=== PATIENT | female | born 1960 | race Caucasian/White ===

== ENCOUNTER 2022-05-24 13:21 | Inpatient (IN) | payer MEDICARE ==
[2022-05-24] VITALS (174 sets, daily range): BP systolic 126–132; BP diastolic 71–80; PULSE 63–67; TEMP 100.1; O2SAT 92–99
[~2022-05-24] VITALS: Ht 165.1 cm; Wt 64.8 kg
[2022-05-24 15:38] LABS: BASO # 0.1 K/mm3 (0.0-0.2); BASO % 0.7 % (0.0-2.0); EOS # 0.2 K/mm3 (0.0-0.7); EOS % 2.6 % (0.0-4.0); GRAN # 4.8 K/mm3 (1.4-6.5); GRAN % 54.2 % (42.2-75.2); HEMATOCRIT 41.1 % (37.0-47.0); LYMPH # 2.9 K/mm3 (1.2-3.4); LYMPH % 33.1 % (20.0-51.0); MEAN CELL VOLUME 97 fl (80.0-100.0); MEAN CORPUSCULAR HEMOGLOBIN 33 pg (27-31); MEAN CORPUSCULAR HGB CONC 34 g/dl (33.0-37.0); MEAN PLATELET VOLUME 8.7 fl (7.4-10.4); MONO # 0.8 K/mm3 (0.1-0.6); MONO % 9.1 % (1.7-9.3); PLATELET COUNT 311 K/mm3 (130-400); RED BLOOD COUNT 4.26 M/mm3 (4.10-5.30); REDCELL DISTRIBUTION WIDTH-CV 12.4 % (11.5-14.5)
[2022-05-24 15:57] LABS: ALANINE AMINOTRANSFERASE 11 U/L (0-55); ALBUMIN 3.8 gm/dL (3.4-4.8); ALKALINE PHOSPHATASE 70 U/L (40-150); ANION GAP 17 mmol/L (7-16); AST,SGOT 19 U/L (5-34); BILIRUBIN,TOTAL 0.7 mg/dL (0.2-1.2); BLOOD UREA NITROGEN 27 mg/dL (10-20); CALCIUM 9.7 mg/dL (8.4-10.2); CARBON DIOXIDE 15 mmol/L (23-31); CHLORIDE 108 mmol/L (98-107); CREATININE, serum 0.78 mg/dL (0.57-1.11); GLUCOSE 61 mg/dL (70-99); POTASSIUM 3.8 mmol/L (3.5-4.5); SODIUM 140 mmol/L (136-145); TOTAL PROTEIN 6.8 gm/dL (6.2-8.1)
[2022-05-24 16:04] LABS: ALCOHOL(ethanol),MEDICAL < 10 mg/dL (0-10); TROPONIN-I < 0.010 ng/mL (0.00-0.033)
[2022-05-24 16:07] LABS: ACETAMINOPHEN < 1.0 ug/mL (10-30); SALICYLATE < 5.0 mg/dL (15.0-30.0)
[2022-05-24 16:11] LABS: COLLECTION METHOD CLEAN CATCH
[2022-05-24 16:18] LABS: URINE APPEARANCE Clear (CLEAR/HAZY); URINE COLOR Yellow (YELLOW)
[2022-05-24 16:19] LABS: PH 5.5 (5.0-8.5); URINE BLOOD Negative (NEGATIVE); URINE GLUCOSE Negative (NEGATIVE); URINE KETONE 4+ (NEGATIVE); URINE NITRATE Negative (NEGATIVE); URINE PROTEIN(semi-quant) Negative (NEGATIVE); URINE UROBILINOGEN 0.2 E.U/dL (0.2-1.0)
[2022-05-24 16:25] LABS: MUCOUS Present (NOT PRESENT); SQUAMOUS EPITHELIAL 0-2 /hpf (0-10); URINE BACTERIA Rare /hpf (NONE SEEN); URINE RBC 0-2 /hpf (0-2)
[2022-05-24 17:28] LABS: TRICYCLIC ANTIDEPRESS URINE NEGATIVE
--- NOTE | 2022-05-24 20:31 | NUR ---
Received report from ED nurse, Ana María.
--- NOTE | 2022-05-24 20:43 | NUR ---
Patient arrives to ICU room 4 via ED stretcher. Patient is alert and speaking, but does not really open eyes or make eye contact with staff. She is not oriented. Speech is somewhat mumbled but confused. She does not follow verbal commands. Initial vitals within normal limits. LR infusing to a peripheral 18G in the LAC. Patient noted to continuously pull at IV tubing and monitoring equipment. Mitts put in place for line protection. Lydia aware of patient's arrival.
--- NOTE | 2022-05-24 20:43 | NUR ---
Unable to safely assess pupils or pupillary response. When attempting to assess, patient clenches her eyes tightly closed. She does not open them when asked by staff. When staff attempts to gently open eyelids, patient swings her arms at nurse aggressively. Mitts already in place for protection of lines and monitoring equipment. When left alone, patient lies in bed quietly the majority of the time. She intermittently sits up in bed or begins crying for brief periods before laying back down. At this time, she has not actively attempted to get out of bed; she is not acting in an aggressive manner towards staff. She is rather compliant with cares and assessment except when attempting to assess pupils.
--- NOTE | 2022-05-24 21:30 | NUR ---
Patient alert but is not oriented, not even to self. Refuses to follow commands or answer staff questions. Attempted to contact Waleska EDOUARD, as listed on admission paperwork, no answer. A message was left with request to call back. Unable to complete vaccination history, suicide risk assessment, or medication reconciliation.
--- NOTE | 2022-05-24 22:09 | NUR ---
Received call back from patient's daughter Waleska. Per Waleska, she has not been in much contact with patient since October of this year. She states Shania called her about a week ago, stating she felt very depressed. Waleska was unaware of patient's recent stay at [facility] or what lead to her admission there. Waleska states she does not know what medications Shania takes nor does she know who her primary doctor is. Waleska reports the patient has a significant history of bipolar disorder, with extremely low lows, and very manic highs. She states patient is known to get combative at times. Waleska reports Shania's baseline as, "slow, but lucid." Waleska states patient also has a son she will be attempting to contact in case he has further information.
[2022-05-25] VITALS (333 sets, daily range): BP systolic 99–140; BP diastolic 72–105; PULSE 56–88; TEMP 97.2–98.3; O2SAT 73–100
[2022-05-25 06:14] LABS: BASO # 0.1 K/mm3 (0.0-0.2); BASO % 0.5 % (0.0-2.0); EOS # 0.5 K/mm3 (0.0-0.7); EOS % 4.1 % (0.0-4.0); GRAN # 7.1 K/mm3 (1.4-6.5); GRAN % 55.8 % (42.2-75.2); HEMATOCRIT 37.2 % (37.0-47.0); HEMOGLOBIN 12.5 g/dl (12.5-16.0); LYMPH # 3.9 K/mm3 (1.2-3.4); LYMPH % 30.4 % (20.0-51.0); MEAN CELL VOLUME 96 fl (80.0-100.0); MEAN CORPUSCULAR HEMOGLOBIN 32 pg (27-31); MEAN CORPUSCULAR HGB CONC 34 g/dl (33.0-37.0); MEAN PLATELET VOLUME 9.4 fl (7.4-10.4); MONO # 1.1 K/mm3 (0.1-0.6); MONO % 8.7 % (1.7-9.3); PLATELET COUNT 259 K/mm3 (130-400); RED BLOOD COUNT 3.87 M/mm3 (4.10-5.30); REDCELL DISTRIBUTION WIDTH-CV 12.3 % (11.5-14.5)
[2022-05-25 06:27] LABS: CALCIUM 9.3 mg/dL (8.4-10.2); CREATININE, serum 0.67 mg/dL (0.57-1.11); POTASSIUM 3.8 mmol/L (3.5-4.5)
--- NOTE | 2022-05-25 07:00 | NUR ---
PT RESTING IN BED. VSS. PT IS ALERT BUT CONFUSED. BEDALARM ACTIVE. PT HAS CALL LIGHT WITHIN REACH AND INSTRUCTED TO CALL WITH ALL NEEDS.
--- NOTE | 2022-05-25 08:30 | NUR ---
ON 05/25 THERE IS NO NEUROLOGY OR PSYCHIATRY DRAW IN HAND TODAY. WILL ENDORSE TO FOLLOWING SHIFT
--- NOTE | 2022-05-25 11:00 | NUR ---
NOTIFIED THAT THERE IS NO NEUROLOGY OR PSYCHIATRY COMMERCIAL LENDING RELATIONSHIP MANAGER TODAY. ALSO, NOTIFIED THAT MRI IS UNABLE TO COMPLETE D/T NO ACCURATE HISTORY.
--- NOTE | 2022-05-25 12:06 | NUR ---
SPOKE WITH MRI REGARDING POSSIBLE BRAIN MRI. STATED THEY ARE UNABLE TO COMPLETE TEST SINCE WE CAN NOT GET A ACCURATE HISTORY OF POSSIBLE METAL IN PATIENT.
--- NOTE | 2022-05-25 14:49 | NUR ---
MESSAGE LEFT WITH [facility] TO OBTAIN WHICH MEDICATIONS PT WAS RECEIVING AT THE CRISIS CENTER.
--- NOTE | 2022-05-25 15:28 | NUR ---
Phone call made to [facility] to see if they would accept this patient back. Per agency they request that that the patient be rescreened prior to consideration of taking the patient back. Patients RN notified. Per nursing staff. Patient pulled out IV and not willing to work with care staff. Phone call made to the patients daughter Waleska ([phone]) to complete intake. Per Waleska, the patient has a strong history of taking her medications and then all of a sudden not taking them. She states that when this happens the patient becomes very "depressed and extremely manic". Waleska states that the last time she saw her mother was this past October. At this time the patient was arrested and went to nursing home due to a "manic episode". The last time she talked with the patient was about 2 weeks ago. She states that she knows of 1 past SI attempt by the patient but knows that the patient has had multiple inpatient psych. hospitalizations. No known DPOA-HC established. Waleska states that the patient has 1 other child, a son, who knows that the patient is here. Waleska verbalizes that she feels the patient does not have "capacity" but that her and her brother are not able to care for the patient in their own homes.
--- NOTE | 2022-05-25 15:48 | NUR ---
PT TAKEN DOWN TO RADIOLOGY FOR LP.
--- NOTE | 2022-05-25 16:28 | NUR ---
NOTIFIED THAT THEY WERE ABLE TO COMPLETE THE LP BUT UNALBE TO PULL FLUID. PT IS MORE AWAKE AND ORIENTED TO PERSON AND PLACE. ALSO NOTIFIED THAT WE ARE AWAITING A MEDICATION LIST FROM [facility]. ORDER RECEIVED TO [place] TELE.
--- NOTE | 2022-05-25 16:59 | NUR ---
Vancomycin Initial Dosing Pharmacy Note Ordering provider: Horacio Diza MD Indication/duration: encephalitis, 5 days LABS: SCr 0.67, CrCl 66, GFR 98 Recommendation: Will give Vancomycin 1.5 gm IV x1 loading dose, then Vancomycin 1 gm IV q12h. Pharmacy will continue to closely montior. Loading dose: 1.5 grams Maintenance dose: 1 gram every 12 hours Trough goal: 15-20 ug/mL
--- NOTE | 2022-05-25 20:00 | NUR ---
SHIFT REPORT RECEIVED. PT ON SI OBSERVATION. SI PRECATIONS FOLLOWED FOR PT'S ROOM. PT ORIENTED TO SELF, HAS CONFUSION TO SITUATION, LOCATION AND TIME. PT REPORTS SHE FEELS CONFUSED AND THAT SHE CANNOT "FORM ANY THOUGHTS". PT HAD QUESTIONS ABOUT WHAT IV NEDICATIONS WERE BEING GIVEN. PT IS NOT ABLE TO RECALL HER CURRENT MEDICATIONS OR DRUG ALLERGIES. PT NOT ABLE TO PREFORM SI SCREEN DUE TO CONFUSION. PT RESTING IN BED WITH TV ON. PT USES CALL LIGHT WHEN SHE NEEDS TO USE RESTROOM. PT SBA WHEN USING RESTROOM, PT WITH MILD WEAKNESS WHEN FIRST STANDING.
[2022-05-25] MEDS ORDERED: VIIBRYD10 MG PO (20:20)
[2022-05-25] MEDS ORDERED: LAMICTAL 25MG T25 MG PO (20:22)
[2022-05-25] MEDS ORDERED: KLONOPIN 1MG1 MG PO (20:22)
[2022-05-25] MEDS ORDERED: VOLTAREN 75 DR75 MG PO (20:23)
[2022-05-25] MEDS ORDERED: MELATONIN5 M1 SL (20:25)
[2022-05-25] MEDS ORDERED: PAXIL 20MG20 MG PO (20:45)
[2022-05-25] MEDS ORDERED: DESYREL 100MG100 MG PO (20:47)
[2022-05-26] VITALS (27 sets, daily range): BP systolic 112–133; BP diastolic 78–82; PULSE 82–90; TEMP 97.6–98.8
--- NOTE | 2022-05-26 06:00 | NUR ---
PT C/O PAIN AT RT FOREARM IV SITE. MILD REDNESS AND SWELLING NOTED. IV REMOVED AND BANDAGE PLACED. NEW IV STARTED LT WRIST, NO C/O OF PAIN WITH FLUSHING OF IV. IV VANCOMYCIN SET UP TO RUN IN LT WRIST IV. PT WITH IMMEDIATE C/O OF BURNING, PT DEMANDED MEDICATION BE REMOVED. PT EDUCATED ON IMPORTANCE OF COMPLETING ABX THERAPIES. PT REFUSED ABX. ABX REMOVED PER PT'S REQUEST.
--- NOTE | 2022-05-26 06:50 | NUR ---
THROUGH OUT NIGHT PT WAS CONFUSED, ORIENTED ONLY TO SELF. PT KEPT STATING "I DON'T FEEL RIGHT, WHAT'S WRONG WITH ME?" PT REQUIRED CONTIUNOUS REMINDING THAT SHE WAS IN THE HOSPITAL ICU. PT WOULD REQUIRE REMINDING OF HER PLACE AND SITUATION MULTIPLE TIMES DURING CONVERSATIONS. PT DID USE CALL LIANG DURING THE NIGHT NEEDED TO USE RESTROOM.
--- NOTE | 2022-05-26 09:47 | NUR ---
BEDSIDE SHIFT REPORT RECEIVED FROM NIKOLE JEAN. PT CURRENTLY RESTING IN BED, NO C/O PAIN OR DISCOMFORT AT THIS TIME. LINES RUNNING ACCORDING TO REPORT. VSS. NO ACUTE CHANGES NOTED
[2022-05-26 11:47] LABS: BASO % 0.4 % (0.0-2.0); EOS # 0.5 K/mm3 (0.0-0.7); EOS % 5.5 % (0.0-4.0); GRAN # 5.8 K/mm3 (1.4-6.5); GRAN % 59.5 % (42.2-75.2); HEMATOCRIT 38.2 % (37.0-47.0); HEMOGLOBIN 13.2 g/dl (12.5-16.0); LYMPH # 2.4 K/mm3 (1.2-3.4); LYMPH % 25.1 % (20.0-51.0); MEAN CELL VOLUME 93 fl (80.0-100.0); MEAN CORPUSCULAR HEMOGLOBIN 32 pg (27-31); MEAN CORPUSCULAR HGB CONC 35 g/dl (33.0-37.0); MEAN PLATELET VOLUME 8.8 fl (7.4-10.4); MONO # 0.9 K/mm3 (0.1-0.6); MONO % 9.2 % (1.7-9.3); PLATELET COUNT 265 K/mm3 (130-400); RED BLOOD COUNT 4.09 M/mm3 (4.10-5.30); REDCELL DISTRIBUTION WIDTH-CV 12.1 % (11.5-14.5)
[2022-05-26 12:07] LABS: CALCIUM 9.4 mg/dL (8.4-10.2); CREATININE, serum 0.66 mg/dL (0.57-1.11); POTASSIUM 3.7 mmol/L (3.5-4.5)
--- NOTE | 2022-05-26 20:00 | NUR ---
SHIFT REPORT RECEIVED. PT ORIENTED TO SELF, PLACE AND TIME. PT STILL CONFUSED, BUT MORE ORIENTED FROM PREVIOUS SHIFT. PT STATED MULTIPLE TIME THROUGH OUT ASSESSMENT "MY HEAD JUST DOESN'T FEEL RIGHT, I FEEL VERY CONFUSED AND LOST, I THINK THERE IS SOMETHING WRONG WITH MY SOUL" PT DOES USE CALL LIGHT AND FOLLOWS COMMANDS. PT WILL REPEAT QUESTIONS AFTER THEY HAVE BEEN ANSWERED. PT REQUESTING TO RETURN TO [facility], PT STATES "I FEEL I NEED A PROFESSIONAL TO HELP ME MENTALLY, I KNOW I'M NOT RIGHT". WHEN ASKED IF PT IS EXPIERENCING SI, PT DENIES AND DENIES ANY SUICIDAL ATTEMPTS IN THE PAST. PT DOES HAVE HX OF SI AND SUICIDAL ATTEMPTS, AND WAS AT [facility] FOR SI. C-SSRS NOT COMPLETED DUE TO PT'S CONFUSION AND INACCURACY.
--- NOTE | 2022-05-27 00:49 | NUR ---
PT TO TRANSFER TO MEDICAL FLOOR RM 328. HAND OFF REPORT GIVEN TO JOHN PAUL RN
[2022-05-27 01:00] VITALS: BP 117/82; PULSE 78; TEMP 97.5
--- NOTE | 2022-05-27 01:15 | NUR ---
PT ARRIVES VIA W/C FROM ICU TO ROOM 328. SBA TO BATHROOM, VOIDS AND TO BED. PLACED BED ALARM ON FOR SAFETY. ORIENTED PT TO ROOM AND CALL LIGHT CONTROLS. PT AFFECT FLAT. HAS INT TO LT WRIST. ASKS IF SHE CAN REMOVE THIS, EXPLAINED TO PT OF IV MEDS. PT VERBALIZES SHE DOESN'T THINK SHE NEEDS THEM. COOPERATIVE WITH STAFF.
[2022-05-27 04:11] VITALS: BP 109/64; PULSE 83; TEMP 97.6
[2022-05-27 07:10] LABS: BASO % 0.5 % (0.0-2.0); EOS # 0.7 K/mm3 (0.0-0.7); EOS % 8.5 % (0.0-4.0); GRAN # 3.5 K/mm3 (1.4-6.5); GRAN % 44.2 % (42.2-75.2); HEMOGLOBIN 12.3 g/dl (12.5-16.0); MEAN CELL VOLUME 96 fl (80.0-100.0); MEAN CORPUSCULAR HEMOGLOBIN 32 pg (27-31); MEAN CORPUSCULAR HGB CONC 34 g/dl (33.0-37.0); MEAN PLATELET VOLUME 9.5 fl (7.4-10.4); MONO # 0.8 K/mm3 (0.1-0.6); MONO % 9.6 % (1.7-9.3); PLATELET COUNT 263 K/mm3 (130-400); RED BLOOD COUNT 3.81 M/mm3 (4.10-5.30); REDCELL DISTRIBUTION WIDTH-CV 12.2 % (11.5-14.5)
[2022-05-27 07:19] LABS: HEMATOCRIT 36.7 % (37.0-47.0)
[2022-05-27 07:22] LABS: ALBUMIN 3.7 gm/dL (3.4-4.8); CALCIUM 10.1 mg/dL (8.4-10.2); CREATININE, serum 0.69 mg/dL (0.57-1.11); MAGNESIUM 1.9 mg/dL (1.6-2.6); PHOSPHOROUS 3.5 mg/dL (2.3-4.7); POTASSIUM 3.4 mmol/L (3.5-4.5)
--- NOTE | 2022-05-27 07:23 | NUR ---
Received shift report from the night nurse NIKOLE Abdalla
[2022-05-27 08:39] VITALS: BP 116/60; PULSE 95; TEMP 97.6
--- NOTE | 2022-05-27 10:30 | NUR ---
Patient resting in bed alert and occasionally consfused. Patient is concern on when she will be going back to [facility]. Patient refused IV medication acyclovir and lovenox. Dr. Diaz up on the floor and notified.
--- NOTE | 2022-05-27 10:40 | NUR ---
Dr. Diaz informs patient is medically stable for [facility] to determine geripsych or mental health diversion plan. [facility] when stable.
--- NOTE | 2022-05-27 10:45 | NUR ---
Small Boat Engineer contacted Andrea at [facility] to request re-screen for placement determination. Small Boat Engineer faxed clinicals and updated nursing. *Awaiting [facility] screen*
[2022-05-27 12:13] VITALS: BP 121/71; PULSE 80; TEMP 98
--- NOTE | 2022-05-27 13:08 | NUR ---
Patient gets worry about where she will be going after hospital discharge. Patient keep saying that she made a wrong decision in her life for not taking her medications for bipolar, anxiety and depression. Patient is not distress and will continue monitoring her. Call baker within reach and bed alarm on.
--- NOTE | 2022-05-27 13:34 | NUR ---
Neurology notifies this Presser Machine that patient has a number of questions regarding where her belongings are located, and she believes she is now living at the [facility] program. Neurologist has not spoken to Dr. Diaz, but informs patient requires psychiatric consultation tomorrow despite Social Work update that [facility] crisis screen is reqeusted. Dr. Diaz is updated and psychiatric consultation is pending, hopefully to meet with patient tomorrow and support discharge plan to [facility] or [facility] crisis as indicated. Presser Machine to follow up with patient to discuss plan of care and attempt to address patient questions, offer emotional support.
--- NOTE | 2022-05-27 15:29 | NUR ---
Procurement Analyst contacted [facility] to request screen cancelled at this time.
[2022-05-27 15:47] VITALS: BP 127/77; PULSE 78; TEMP 98.1
--- NOTE | 2022-05-27 16:29 | NUR ---
Distance Learning Program Coordinator met with patient at nursing request; patient has been repeatedly seeking social work to answer questions. Patient presents alert and disoriented, calm and slowed in responses. She repeatedly runs her hand through her hair, cooperative to talk. She states she does not know why she is here, only that her [place] Director Agricultural Services Leanna Isabel in [place] talked with her and they together decided to admit to [facility]. she does not know why they sent her to the hospital, but she is not medication compliant with mental health medications and she is is trying to be compliant. Patient is educated on plan for psychiatric consult and then determination of discharge plan to hospital for inpatient mental health vs. return to [facility] as they will re-screen her when cleared medically. She verbalizes understanding and then states she does not know where she was living before [facility], "I'm not sure what happened to my house in [place]." She reports fear she will "go back to snf," noting she had been in snf before for medication compliance and she missed a meeting with probation since she's been hospitalized. She states her child welfare caseworker is aware she is on probation. Patient states, "I'm not tracking well, my mental status isn't okay." She repeatedly inquires about the plan and is updated several times, "I'm not sure." She is assured that the treatment team will continue to work towards discharge in collaboration with [facility] as indicated. She states, "Okay, thank you." *Patient awaiting psychiatric consult for recommendations for discharge*
--- NOTE | 2022-05-27 18:18 | NUR ---
Patient resting in bed quietly still worry about when she will be going back to [facility]. I informed patient that she has pending consult to see a grants specialist. Patient verbalized understanding and has no other question. Bed alarm activated and call baker within reach.
--- NOTE | 2022-05-27 20:30 | NUR ---
PT ASKING ABOUT BEDTIME MEDS. REVIEWED PLAN OF CARE WITH PATIENT. WILL NOTIFY DR SANDRA ABOUT PSYCH CONSULT IN THE AM. HS MEDS GIVEN. PT IS STEADY ON HER FEET, ORIENTED X3. ASKING HOW SHE GOT HERE AND STATES "I'M CONFUSED TO HOW I GOT HERE". INT TO LFA, FLUSHED WELL.
[2022-05-27 20:47] VITALS: BP 119/80; PULSE 80; TEMP 97.6
[2022-05-28] VITALS (7 sets, daily range): BP systolic 115–131; BP diastolic 59–87; PULSE 80–107; TEMP 97.7–98.3
--- NOTE | 2022-05-28 06:39 | NUR ---
DR SANDRA NOTIFIED OF CONSULT, SHE WILL SEE PT AFTER CLINIC AROUND 3-4PM.
[2022-05-28 07:00] LABS: BASO # 0.1 K/mm3 (0.0-0.2); BASO % 0.5 % (0.0-2.0); EOS # 0.8 K/mm3 (0.0-0.7); EOS % 7.7 % (0.0-4.0); GRAN % 49.4 % (42.2-75.2); HEMATOCRIT 42.5 % (37.0-47.0); LYMPH # 3.5 K/mm3 (1.2-3.4); LYMPH % 34.4 % (20.0-51.0); MEAN CELL VOLUME 99 fl (80.0-100.0); MEAN CORPUSCULAR HEMOGLOBIN 33 pg (27-31); MEAN CORPUSCULAR HGB CONC 33 g/dl (33.0-37.0); MEAN PLATELET VOLUME 9.6 fl (7.4-10.4); MONO # 0.8 K/mm3 (0.1-0.6); MONO % 7.5 % (1.7-9.3); PLATELET COUNT 317 K/mm3 (130-400); RED BLOOD COUNT 4.31 M/mm3 (4.10-5.30); REDCELL DISTRIBUTION WIDTH-CV 12.3 % (11.5-14.5)
[2022-05-28 07:36] LABS: ALBUMIN 4.5 gm/dL (3.4-4.8); CALCIUM 10.4 mg/dL (8.4-10.2); CREATININE, serum 0.81 mg/dL (0.57-1.11); MAGNESIUM 1.9 mg/dL (1.6-2.6); PHOSPHOROUS 3.9 mg/dL (2.3-4.7); POTASSIUM 3.7 mmol/L (3.5-4.5)
--- NOTE | 2022-05-28 08:06 | NUR ---
CALLED LABS TO [facility] AT THIS TIME.
--- NOTE | 2022-05-28 09:38 | NUR ---
PT AMBULATING IN ROOM AND HALLS WITH SBAX1, PT PREFORMED ADLS INDEPENDENTLY. ASSISTED PT WITH CALLING FAMILY. PT DENIES NEEDS AT THIS TIME. DR. MARTINEZ TO SEE PT AFTER CINIC. AM MEDS GIVEN ORDERED.
--- NOTE | 2022-05-28 13:09 | NUR ---
Initial visit; Patient sitting up on side of the bed seeming alone and a little lost. talked with her awhile and asked a few questions which she slowly answered and eventually stated that she made some mistakes since Thanksgiving that caused "some to not like her." eventually steered the conversation toward forgiving ones-self and putting her reno and trust in God's help. suggested she pray "The Lord's Prayer," and really listen to the words as she prays. "Thy will be done..." is self explanatory. She said, "I like you." will follow up. Patient is on strong meds and is not always thinking clearly.
--- NOTE | 2022-05-28 21:33 | NUR ---
SHIFT REPORT FROM SUSY AGUSTIN. PATIENT IN BED ON ROOM ENTRY. HS MEDS PER EMAR. PATIENT HAS QUESTIONS ABOUT HER TRANSFER TO AN INPATIENT PSYCH AND I DISCUSSED WITH PATIENT THAT WE WILL KNOW MORE AFTER SOCIAL WORK COMES AROUND TOMORROW. SHE IS ANXIOUS ABOUT HAVING A PLACE TO LIVE AFTER THE PSYCH HOLD AND STATES SHE NEEDS TO REACH OUT TO HER LANDLORD ABOUT HER HOSPITAL STAY. I REASSURED PATIENT THAT THIS IS ALL STUFF THAT SOCIAL WORK CAN HELP WITH TOMORROW. PATIENT DENIES ADDITIONAL NEEDS. CALL LIGHT IN REACH. BED ALARM ON.
[2022-05-29 03:47] VITALS: BP 111/77; PULSE 104; TEMP 97.7
[2022-05-29 07:29] LABS: BASO # 0.1 K/mm3 (0.0-0.2); BASO % 0.6 % (0.0-2.0); EOS # 0.6 K/mm3 (0.0-0.7); EOS % 7.1 % (0.0-4.0); GRAN # 4.1 K/mm3 (1.4-6.5); GRAN % 49.8 % (42.2-75.2); HEMOGLOBIN 12.3 g/dl (12.5-16.0); LYMPH # 2.8 K/mm3 (1.2-3.4); MEAN CELL VOLUME 96 fl (80.0-100.0); MEAN CORPUSCULAR HEMOGLOBIN 33 pg (27-31); MEAN CORPUSCULAR HGB CONC 34 g/dl (33.0-37.0); MEAN PLATELET VOLUME 9.1 fl (7.4-10.4); MONO # 0.7 K/mm3 (0.1-0.6); MONO % 8.3 % (1.7-9.3); PLATELET COUNT 250 K/mm3 (130-400); RED BLOOD COUNT 3.78 M/mm3 (4.10-5.30); REDCELL DISTRIBUTION WIDTH-CV 12.4 % (11.5-14.5)
[2022-05-29 07:33] LABS: HEMATOCRIT 36.4 % (37.0-47.0)
[2022-05-29 07:50] VITALS: BP 106/69; PULSE 78; TEMP 97.6
[2022-05-29 08:04] LABS: ALBUMIN 3.7 gm/dL (3.4-4.8); CALCIUM 9.8 mg/dL (8.4-10.2); CREATININE, serum 0.72 mg/dL (0.57-1.11); MAGNESIUM 1.9 mg/dL (1.6-2.6); PHOSPHOROUS 3.7 mg/dL (2.3-4.7); POTASSIUM 4.2 mmol/L (3.5-4.5)
--- NOTE | 2022-05-29 08:44 | NUR ---
PT RESTING IN BED. REVIEWED MEDICATIONS WITH PT. OFFERED REASSURANCE AND SUPPORT. PT IS FEELING DEPRESSED. CRISTIANSHANT JAMES CONTACTED PER PT REQUEST AND SHE IS PROVIDING SPIRITUAL ASSISTANCE. DR. MARTINEZ IS RECCOMENDING INPATIENT [place] AT A MENTAL HEALTH FACILITY.
--- NOTE | 2022-05-29 10:03 | NUR ---
Follow-up visit; Patient delighted when appeared at her door. She had asked her nurse to make sure and mention she wanted to see again. was planning a return visit. listened and reassured Shania that God is in charge of her body, mind and soul and if she feels threatened by negative issues (she calls it Elena), that all she needs to do is ask God to fill her up with his love and study to learn more about God. later took her a Daily Word magazine to help fill her mind with positive messages. will continue to look in on her.
[2022-05-29 12:23] VITALS: BP 107/60; PULSE 85; TEMP 98
--- NOTE | 2022-05-29 13:46 | NUR ---
The psychiatrist, Dr. High, met with the patient yesterday. She is recommending inpatient psych and the patient is agreeable to going to a facility. TRINI contacted Leigha at the [facility] to inquire if the patient can return back to them and they assist with placement. Leigha reports that they would have to re-screen the patient. TRINI updated the PA. TRINI faxed referrals to [facility], [facility], [facility], [facility], [facility], [facility], [place] [facility], [facility], [facility], and [facility]. Awaiting screens.
[2022-05-29 19:27] VITALS: BP 108/63; PULSE 81; TEMP 98
[2022-05-30] VITALS (7 sets, daily range): BP systolic 102–124; BP diastolic 57–73; PULSE 77–100; TEMP 97.8–98.2
--- NOTE | 2022-05-30 00:16 | NUR ---
SHIFT REPORT FROM SUSY AGUSTIN. PATIENT IN BED ON ROOM ENTRY. DENIES PAIN. HS MEDS PER EMAR. DENIES ADDITIONAL NEEDS. CALL LIGHT IN REACH.
[2022-05-30 07:25] LABS: BASO # 0.1 K/mm3 (0.0-0.2); BASO % 0.6 % (0.0-2.0); EOS # 0.8 K/mm3 (0.0-0.7); GRAN # 5.1 K/mm3 (1.4-6.5); GRAN % 54.4 % (42.2-75.2); HEMOGLOBIN 12.1 g/dl (12.5-16.0); LYMPH # 2.7 K/mm3 (1.2-3.4); LYMPH % 28.5 % (20.0-51.0); MEAN CELL VOLUME 96 fl (80.0-100.0); MEAN CORPUSCULAR HEMOGLOBIN 33 pg (27-31); MEAN CORPUSCULAR HGB CONC 35 g/dl (33.0-37.0); MEAN PLATELET VOLUME 9.5 fl (7.4-10.4); MONO # 0.8 K/mm3 (0.1-0.6); MONO % 8.2 % (1.7-9.3); PLATELET COUNT 271 K/mm3 (130-400); RED BLOOD COUNT 3.64 M/mm3 (4.10-5.30); REDCELL DISTRIBUTION WIDTH-CV 12.4 % (11.5-14.5)
[2022-05-30 07:34] LABS: HEMATOCRIT 35.1 % (37.0-47.0)
[2022-05-30 07:35] LABS: ALBUMIN 3.4 gm/dL (3.4-4.8); CALCIUM 9.2 mg/dL (8.4-10.2); CREATININE, serum 0.7 mg/dL (0.57-1.11); MAGNESIUM 1.9 mg/dL (1.6-2.6); PHOSPHOROUS 3.4 mg/dL (2.3-4.7); POTASSIUM 4.1 mmol/L (3.5-4.5)
--- NOTE | 2022-05-30 08:00 | NUR ---
Pt. sitting up in bed. Pt. is a&OX3 but forgetful at times. INT discontinued from lt. wrist. Pt. tolerated well. Shift assessment complete. Pt. denies pain or other needs, call light within reach.
--- NOTE | 2022-05-30 09:00 | NUR ---
Chau, at [facility], reports they are out of network with the patient's insurance: Medicare [employer].
--- NOTE | 2022-05-30 10:26 | NUR ---
Follow-up visit; Patient appears to have made little emotional progress though seems to listen intently when Lens Edger is making a point, trying to offer encouragement and spiritual care. It is impossible to discern what she is absorbing and why she seems to be stuck in the same mind-set. Lens Edger inquired as to how her medications effect her and wonder if they cause her inability to take in information and act upon it. Lens Edger will continue to look in on Shania.
--- NOTE | 2022-05-30 15:09 | NUR ---
TRINI was notified that [facility] feels the patient should go to an adult inpatient psych unit, not geripsych. TRINI contacted the [facility] to obtain a list for adult inpatient psych units. Leigha and Jayleen at the [facility] emailed SW a list, but states that their therapist is recommending a geripsych and that they do not believe any of the adult inpatient psych facilities will take, due to her age. TRINI met with the patient to update on referrals. The patient confirms that she is still agreeable with going to an inpatient psych facility. SW inquired if she has a DPOA-HC and if she would be interested in completing one while here. The patient states that she does not have a DPOA-HC. She verbalized that a DPOA-HC would give someone the rights to make decisions for her, if she is not able to. She states that she should probably get one done and would like to go ahead and complete it while here. She verbalized that she would like to designate her daughter, Waleska Christianson (ph#[phone]). TRINI and Heather, OT, witnessed the patient's signature. TRINI provided the patient with the original and some copies. She states that she believes some of her belongings are still at the [facility] and asked for help to get them back. Daina, at [facility] reports that they denied due to medical acuity. TRINI left a message with [facility] and [facility] following up on referral. [facility] is no longer taking admissions. Yudi, at [facility], reports that they are full and have a wait list. [place] [facility] reports that they are also full and have a wait list. Laurita, at [facility], reports that they are full and not sure when they would have a bed available. TRINI contacted and faxed a referral to [facility]. Awaiting screen. TRINI contacted the [facility] about the patient's belongings. They are asking if someone, like family, would be able to roller picker the patient's belongings.
--- NOTE | 2022-05-30 15:47 | NUR ---
TRINI contacted the patient's daughter, Waleska, to update on discharge plan. Waleska is in agreement to the plan and being the patient's DPOA-HC. She states that she lives [place] [place] so it would not be ideal to come up to [place] to get the patient's belongings. TRINI notified Alessandro at the [facility] of this. Alessandro states that they will drop off the patient's belongings in to ED. TRINI updated the community organization director on the surgical unit.
--- NOTE | 2022-05-30 17:30 | NUR ---
Babak from [facility] behavioral health called to screen the pt.
--- NOTE | 2022-05-30 18:43 | NUR ---
Babak from [facility] called to inform us that they decline admit.
--- NOTE | 2022-05-30 19:39 | NUR ---
SHIFT REPORT FROM FRANCO AGUSTIN. PATIENT IN BED ON ROOM ENTRY. AMBULATED INDEPENDENTLY TO BATHROOM AND HAD UNMEASURED VOID. HS MEDS PER EMAR. C/O HEADACHE AND PRN TYLENOL WAS GIVEN. PATIENT DENIES ADDITIONAL NEEDS. CALL LIGHT IN REACH.
[2022-05-31 04:27] VITALS: BP 100/64; PULSE 74; TEMP 98
[2022-05-31 06:44] LABS: BASO # 0.1 K/mm3 (0.0-0.2); BASO % 0.9 % (0.0-2.0); EOS # 0.6 K/mm3 (0.0-0.7); EOS % 8.9 % (0.0-4.0); GRAN % 44.1 % (42.2-75.2); HEMOGLOBIN 12.1 g/dl (12.5-16.0); LYMPH # 2.6 K/mm3 (1.2-3.4); LYMPH % 37.5 % (20.0-51.0); MEAN CELL VOLUME 96 fl (80.0-100.0); MEAN CORPUSCULAR HEMOGLOBIN 33 pg (27-31); MEAN CORPUSCULAR HGB CONC 34 g/dl (33.0-37.0); MEAN PLATELET VOLUME 9.2 fl (7.4-10.4); MONO # 0.6 K/mm3 (0.1-0.6); MONO % 8.3 % (1.7-9.3); PLATELET COUNT 249 K/mm3 (130-400); REDCELL DISTRIBUTION WIDTH-CV 12.4 % (11.5-14.5)
[2022-05-31 06:45] LABS: HEMATOCRIT 35.4 % (37.0-47.0)
[2022-05-31 07:12] LABS: ALBUMIN 3.4 gm/dL (3.4-4.8); CALCIUM 9.7 mg/dL (8.4-10.2); CREATININE, serum 0.7 mg/dL (0.57-1.11); PHOSPHOROUS 3.1 mg/dL (2.3-4.7)
--- NOTE | 2022-05-31 07:17 | NUR ---
Received shift report from night nurse, Belia Archer RN.
[2022-05-31 07:23] VITALS: BP 111/67; PULSE 80; TEMP 97.9
--- NOTE | 2022-05-31 08:26 | NUR ---
Patient sitting up in bed done eating breakfast. Patient alert and oriented x3 occasional confused. Patient has no INT, and denies of any pain.
--- NOTE | 2022-05-31 09:13 | NUR ---
Follow up visit; Patient with nurse, Network Systems Integrator wished her well and will check on her later.
--- NOTE | 2022-05-31 11:29 | NUR ---
Patient very tearful stating that she can't even think and doesn't know what's going on with her. I reassured patient that SW is working on finding a placement for her. Patient verbalized understanding and spirite offered. I assisted patient to the bathroom to void and back to bed. Bed alarm activated.
[2022-05-31 11:34] VITALS: BP 115/70; PULSE 85; TEMP 98
--- NOTE | 2022-05-31 13:20 | NUR ---
Arnaud, at [facility], reports that they will have no beds until next week and that there are 4-5 people ahead of the patient at this time. Sophie, at [facility], reports that the patient was declined due to not meeting acute criteria and the patient's symptoms are more chronic.
--- NOTE | 2022-05-31 14:56 | NUR ---
SW contacted and faxed a referral to [facility].
--- NOTE | 2022-05-31 15:40 | NUR ---
The patient's daughter, Waleska, is no longer wanting to be the patient's DPOA-HC, but the patient's brother is willing to be her DPOA-HC. Waleska would like to speak to the patient about this. TRINI assisted the patient with contacting Waleska on her room phone. After their conversation, TRINI followed up with the patient. The patient would like to update her DPOA-HC and she verbalized that she would like to designate her brother, Alessandro Saenz (ph#[phone], [place]). TRINI and the patient's RN, Windy, witnessed the patient's signature. TRINI provided her with a copy. TRINI updated her about the referrals that our out. The patient is still agreeable to inpatient psych. TRINI also contacted and faxed a referral to [facility]. Dr. High, psychiatrist, then contacted TRINI. She would like to have [facility] re-screen the patient for her to return back to the [facility]. TRINI contacted and faxed the patient's records to Alessandro at [facility]. TRINI updated the patient's RN.
[2022-05-31 15:55] VITALS: BP 108/68; PULSE 75; TEMP 98.3
--- NOTE | 2022-05-31 16:20 | NUR ---
[facility] reports that the patient's Medicaid does not have long-term care benefits. [facility] reports that they cannot accept the patient until long-term care insurance is established and they confirm it. They have been in contact with the patient's family about this. TRINI updated the patient's mother, Oumar. Oumar expressed frustrations with the hospital. She was also hopeful the patient could stay here, until they got the long-term care insurance figured out. She states that she will try and call Mario Sterling.
--- NOTE | 2022-05-31 18:24 | NUR ---
[facility] Ralph, holding zoom meeting with patient at 1820 in reference to finding placement at the facility.
--- NOTE | 2022-05-31 19:52 | NUR ---
RECEIVED CHANGE OF SHIFT REPORT FROM DAY SHIFT RN. RESTING IN BED, EXIT ALARM ON, CALL LIGHT WITHIN REACH.
[2022-05-31 20:20] VITALS: BP 113/64; PULSE 80; TEMP 97.1; TEMP 98.2
--- NOTE | 2022-05-31 23:38 | NUR ---
[facility], INTAKE ADMISSIONS TEAM CALLED, REQUESTED 05/31 LABS/VS AND PROGRESS NOTES TO BE FAXED TO THEM AT #[phone]. PAPERS FAXED REQUESTED.
[2022-06-01] VITALS (7 sets, daily range): BP systolic 94–118; BP diastolic 52–77; PULSE 72–92; TEMP 97.6–98.3
--- NOTE | 2022-06-01 07:09 | NUR ---
Received shift from the night nurse, Rachele AGUSTIN.
--- NOTE | 2022-06-01 07:10 | NUR ---
CHANGE OF SHIFT REPORT GIVEN TO DAY SHIFT RNEMILY.
--- NOTE | 2022-06-01 08:04 | NUR ---
Patient sitting up in a chair next to the bed. Alert and oriented x 3. Assessment completed. VSS, Patient states processing her thoughts are very challenging for her because she has problems remembering names. Patient denies of shortness of breath or pain. Patient has no IV access. Patient took all am meds without difficulty. Chair alarm activated.
--- NOTE | 2022-06-01 08:47 | NUR ---
Kevin, at [facility], reports that they need a note stating that the patient has been medically cleared. TRINI updated the PA. TRINI contacted [facility] to follow up about the screen. The receptionist clerk reports that [place] is working on trying to find placement for the patient and this might take awhile.
--- NOTE | 2022-06-01 10:33 | NUR ---
Follow-up: took a Verse from Blu 6:27-30 to Shania and waved to her, wishing her well as she talked on the phone.
--- NOTE | 2022-06-01 11:20 | NUR ---
The patient's brother, Alessandro, contacted the hospital. The call was transferred to this for an update. Alessandro informed TRINI that the patient "is mentally challenged" and has been this way for years." He asks that the patient be re-screened this morning, so she can return back to her apartment. TRINI informed Alessandro how inpatient psych is being recommended by our psychiatrist and [facility]. Alessandro states that the patient is wanting to return home now and just asks that she be re-screened. TRINI met with the patient to follow up. The patient asks if she can just return home now. TRINI informed her how inpatient psych is the recommendation. The patient verbalized understanding and states that it would probably be best if [place] re-screened her again. TRINI contacted Sadia, therapist, at [facility] to update on the above and if the patient would be safe to return home. Sadia states that she does not feel like the patient would be safe to return home. Sadia states that the patient has shown deteriortation in their facility and the hospital. Sadia reports she would not be willing to safety plan the patient home and if the patient leaves, it would be AMA. Sadia states that they are looking at adult and geripsych facilities and are sending out more referrals. TRINI updated the patient's RN.
--- NOTE | 2022-06-01 18:34 | NUR ---
Patient resting in bed watching TV, denies needs but still having problems remembering things.
--- NOTE | 2022-06-01 20:30 | NUR ---
PT AWAKE, WATCHING TV. ASKS WHEN HER ADMISSION DATE WAS. DISCUSSED SOCIAL WORK NOTES WITH PT. PT HAS STEADY GAIT WHEN UP. NO IV SITE. AWAITING PLACEMENT.
[2022-06-02 03:44] VITALS: BP 122/75; PULSE 79; TEMP 97.5
[2022-06-02 07:11] LABS: CALCIUM 9.2 mg/dL (8.4-10.2); CREATININE, serum 0.69 mg/dL (0.57-1.11); POTASSIUM 4.5 mmol/L (3.5-4.5)
[2022-06-02 07:14] VITALS: BP 112/77; PULSE 98; TEMP 97.8
[2022-06-02 07:28] LABS: BASO # 0.1 K/mm3 (0.0-0.2); BASO % 0.9 % (0.0-2.0); EOS # 0.6 K/mm3 (0.0-0.7); GRAN # 2.8 K/mm3 (1.4-6.5); GRAN % 41.7 % (42.2-75.2); LYMPH # 2.6 K/mm3 (1.2-3.4); LYMPH % 38.4 % (20.0-51.0); MEAN CELL VOLUME 97 fl (80.0-100.0); MEAN CORPUSCULAR HEMOGLOBIN 33 pg (27-31); MEAN CORPUSCULAR HGB CONC 34 g/dl (33.0-37.0); MEAN PLATELET VOLUME 9.5 fl (7.4-10.4); MONO # 0.6 K/mm3 (0.1-0.6); MONO % 9.6 % (1.7-9.3); PLATELET COUNT 292 K/mm3 (130-400); RED BLOOD COUNT 3.69 M/mm3 (4.10-5.30); REDCELL DISTRIBUTION WIDTH-CV 12.3 % (11.5-14.5)
[2022-06-02 07:34] LABS: HEMATOCRIT 35.7 % (37.0-47.0)
[2022-06-02 11:25] VITALS: BP 114/77; PULSE 81; TEMP 97.9
[2022-06-02 15:38] VITALS: BP 115/75; PULSE 83; TEMP 97.9
--- NOTE | 2022-06-02 19:22 | NUR ---
PT COMPLAINS OF HEADACHE, TYLENOL 650MG PO GIVEN. PT WITH STEADY GAIT IN HER ROOM. ORIENTED X3. REPORTS FEELING ANXIOUS AND WANTS TO WALK MORE.
[2022-06-02 20:05] VITALS: BP 121/70; PULSE 88; TEMP 97.8
--- NOTE | 2022-06-02 22:10 | NUR ---
HS MEDS GIVEN. PT ENCOURAGED TO AMBULATE IN [place] TO HELP WITH ANXIETY OF HOSPITAL STAY.
[2022-06-02 23:32] VITALS: BP 100/53; PULSE 69; TEMP 97.6
[2022-06-03 03:39] VITALS: BP 95/59; PULSE 77; TEMP 98
[2022-06-03 07:52] VITALS: BP 119/80; PULSE 88; TEMP 97.6
--- NOTE | 2022-06-03 08:00 | NUR ---
PATIENT IS A&O X3 BUT DISPLAY ANXIETY AND IS A LITTLE TEARFUL THIS AM. PATIENT FEELING ANXIOUS ABOUT INPATIENT PLACEMENT AND HAS BEEN WAITING SEVERAL DAYS. SHE GOES ON TO EXPRESS THAT SHE FEELS INPATIENT PSYCH PLACEMENT IS SOMETHING SHE NEEDS AT THIS TIME. PSYCH CONSULTED. UNPAID INTERN WORKING ON PLACEMENT. HEAD TO TOE ASSESSMENT WNL. AM MEDS GIVEN. BREAKFAST TRAY ORDERED. NO IV SITE. PATIENT RESTING UP IN BED WITH CALL LIGHT.
[2022-06-03 12:27] VITALS: BP 130/80; PULSE 76; TEMP 97.9
[2022-06-03 16:19] VITALS: BP 124/75; PULSE 74; TEMP 98
[2022-06-03 20:48] VITALS: BP 123/69; PULSE 73; TEMP 97.7
--- NOTE | 2022-06-03 21:00 | NUR ---
PT IN BED, TEARFUL. HAD DISCUSSION WITH PATIENT REGARDING PSYCH CONSULT AND RECOMMENDATIONS. PT'S SISTER JEFFERY CALLED, WILL CALL AGAIN IN AM. PT TAKES HS MEDS WITHOUT PROBLEM.
[2022-06-04 04:21] VITALS: BP 91/55; PULSE 75; TEMP 97.9
[2022-06-04 07:33] VITALS: BP 111/78; PULSE 80; TEMP 97.7
--- NOTE | 2022-06-04 08:00 | NUR ---
PATIENT IS ALERT AND PARTIALLY ORIENTED. PATIENT IS FREQUENTLY TEARFUL AND STATED "IM JUST NOT TRACKING WELL". HOSPITALIST TEAM ROUNDED. WORKING ON INPATIENT PSYCH PLACEMENT. AM MEDS GIVEN. BREAKFAST TRAY ORDERED. NO C/O N\\V OR PAIN. NO IV SITE. HEAD TO TOE ASSESSMENT WNL. INDEPENDENT IN ROOM. CALL LIGHT IN REACH.
--- NOTE | 2022-06-04 10:34 | NUR ---
JOSE CALLED FOR PATIENT STATUS UPDATE. PATIENT ISN'T MEETING INPATIENT PSYCH CRITERIA AND SEEMS TO SUFFER MORE FROM EMOTIONAL DISTRESS. JOSE IS GOING TO HAVE A ZOOM MEETING WITH PATIENT AND DISCUSS SETTING UP A CARE/SAFETY PLAN INSTEAD AND THEN WILL TOUCH BASE WITH NURSING.
--- NOTE | 2022-06-04 11:00 | NUR ---
AFTER ZOOMING WITH PATIENT, JOSE WILL TAKE PATIENT TO ASSIST IN TRANSITIONING BACK HOME. HOSPITALIST TEAM AND SOCIAL WORK NOTIFED. WORKING ON DISCHARGE
[2022-06-04 11:40] VITALS: BP 126/78; PULSE 86; TEMP 98.3
[2022-06-04] MEDS ORDERED: TYLENOL 325MG325 MG PO (11:42)
[2022-06-04] MEDS ORDERED: LAMICTAL 25MG T25 MG PO (11:43)
[2022-06-04] MEDS ORDERED: VOLTAREN 75 DR75 MG PO (11:49)
[2022-06-04] MEDS ORDERED: MELATONIN5 M1 SL (11:50)
[2022-06-04] MEDS ORDERED: DESYREL 100MG100 MG PO (11:50)
[2022-06-04] MEDS ORDERED: VIIBRYD10 MG PO (11:50)
[2022-06-04] MEDS ORDERED: KLONOPIN 1MG1 MG PO (11:51)
--- NOTE | 2022-06-04 13:45 | NUR ---
PATIENT HAS FINISHED LUNCH AND IS NOW DRESSED AND READY FOR DISCHARGE. CALLED [facility] FOR [employer]. GAVE DISCHARGE INSTRUCTIONS, E-SCRIPTS SENT, AND DISCUSSED TRANSFER TO INPATIENT PSYCH. ANSWERED QUESTIONS/CONCERNS. PATIENT DISCHARGED VIA WITH [facility].
--- NOTE | 2022-06-04 14:14 | NUR ---
[facility] collaborated with NIKOLE Chauhan who advised therapist at [facility] does not believe patient can be placed inpatient as she is not suicidal or homicidal. [facility] advised they will accept patient and did a zoom conference with her. SW [facility] and confirmed that they will be here this afternoon to picker / packer patient. Meds to go to [facility]. Discharge Plan: [facility]
== END 2022-06-04 13:45 | disposition home or self-care (01) | DRG 71 ==
LOC: COL.ER 13:21 → ICU 18:34 → SURG 18:34 → ICU 18:35 → SURG 20:45 → ICU 05-26 11:09 → SURG 05-27 01:00 → ICU 05-27 01:00 → SURG 06-04 13:45
PROVIDERS: Emergency Medicine; Nurse Practitioner Family; Physician Assistant; ADMIT Internal Medicine
DX: G93.41 Metabolic encephalopathy (principal); E87.29 Other acidosis; R45.851 Suicidal ideations; F10.90 Alcohol use, unspecified, uncomplicated; E87.8 Other disorders of electrolyte and fluid balance, not elsewhere classified; E16.2 Hypoglycemia, unspecified; F31.9 Bipolar disorder, unspecified; Z56.0 Unemployment, unspecified; Z88.8 Allergy status to other drugs, medicaments and biological substances
CPT/HCPCS: OP; G0378; J0133; J0696; J1650; J2060; J3370; J7030; J7050; J7120